=== PATIENT | female | born 1990 | race Caucasian/White ===

== ENCOUNTER 2018-10-29 02:11 | Emergency (ER) | payer OTHER ==
[~2018-10-29] VITALS: Ht 152.4 cm; Wt 63.1 kg
[2018-10-29 02:16] VITALS: BP 117/77
[2018-10-29] MEDS ORDERED: LIDOCAINE-MPF 1%, 5ML ONE (02:48)
--- NOTE | 2018-10-29 02:59 | NUR ---
Pa at bedside for I&D.
[2018-10-29] MEDS ORDERED: LIDOCAINE-MPF 1%, 5ML INFIL ONE (03:00)
== END 2018-10-29 03:29 | disposition home or self-care (01) ==
LOC: ED 03:25
DX: L60.0 Ingrowing nail (principal); M79.672 Pain in left foot
CPT/HCPCS: 11730; 99283